=== PATIENT | male | born 1955 | race Caucasian/White ===

== ENCOUNTER 2021-04-08 11:07 | Outpatient (CLI) | payer MEDICARE, OTHER ==
--- NOTE | 2021-04-08 17:25 | XRAY Report ---
PROCEDURE: Chest 2 View X-Ray INDICATIONS: DYSPNEA, COUGH TECHNIQUE: 2 view(s) of the chest. COMPARISON: None. FINDINGS: Surgical changes and devices: None. Lungs and pleura: No pleural effusions or pneumothorax. Lungs are clear. Lungs hyperinflated sugges ting COPD. Mediastinum: Mediastinal contours are normal. Heart size is normal. Bones and chest wall: No suspicious bony abnormalities. Soft tissues appear unremarkable. IMPRESSION: No acute cardiopulmonary disease process. Reviewed by: Trisha Tom MD, PhD on 04/08/2021 5:24 PM PDT Approved by: Trisha Tom MD, PhD on 04/08/2021 5:24 PM PDT Station ID: [id number]
== END 2021-04-08 23:59 | disposition home or self-care (01) ==
LOC: DI.S 11:07
PROVIDERS: ATTEND Emergency Medicine
DX: R05 Cough (principal)
CPT/HCPCS: 71046; U0004